=== PATIENT | female | born 1950 ===

== ENCOUNTER 2017-01-11 12:25 | Emergency (ER) | payer MEDICARE, MEDICAID ==
[2017-01-11 13:17] VITALS: RESP 18
--- NOTE | 2017-01-11 13:51 | C.PDOC ---
History Of Present Illness 66 y/o female with hx of HTN, GERD, anxiety, and pancreatic insufficiency, c/o right sided nose bleeds for the last 3 month. Symptom is described as pressure to the nose. Patient notes bright red blood with no mucus during the nose bleeds. Symptoms is random that occurs every 3 weeks, lasting 2 min. Last occurrence last night. Denies fever, chills, headache, chest pain, SOB, symptoms, OR URI symptoms. Time Seen by Provider: 01/11/17 13:21 Chief Complaint (Nursing): ENT Problem History Per: Patient History/Exam Limitations: None Onset/Duration Of Symptoms: Days, Intermittent Episodes, Persistent Current Symptoms Are (Timing): Still Present Severity: Mild Past Medical History Reviewed: Historical Data, Nursing Documentation, Vital Signs Vital Signs: Last Vital Signs Temp 98 F 01/11/17 13:56 Pulse 74 01/11/17 13:56 Resp 18 01/11/17 13:56 BP 126/83 01/11/17 13:56 Pulse Ox 97 01/11/17 14:58 - Medical History PMH: Anxiety, Arthritis, HTN, Hypothyroidism, Rheumatoid Arthritis - [facility] Procedures EXCIS LES TENDON SHEATH (04/07/13) INJECT/INFUSE NEC (11/24/13) Family History: States: Unknown Family Hx - Social History Hx Tobacco Use: No Hx Alcohol Use: No Hx Substance Use: No - Immunization History Hx Tetanus Toxoid Vaccination: No Hx Influenza Vaccination: No Hx Pneumococcal Vaccination: No Review Of Systems Except As Marked, All Systems Reviewed And Found Negative. Constitutional: Negative for: Fever, Chills ENT: Positive for: Nose Discharge (Epistaxis). Negative for: Nose Congestion, Throat Pain Cardiovascular: Negative for: Chest Pain Respiratory: Negative for: Cough, Shortness of Breath Genitourinary: Negative for: Dysuria, Hematuria Neurological: Negative for: Headache Physical Exam - Physical Exam Appears: Non-toxic, No Acute Distress Skin: Warm, Dry Head: Atraumatic, Normacephalic Nose: Normal, No Discharge, No Epistaxis Oral Mucosa: Moist Throat: Normal, No Erythema, No Exudate Cardiovascular: Rhythm Regular, No Murmur Respiratory: Normal Breath Sounds, No Rales, No Rhonchi, No Wheezing Neurological/Psych: Oriented x3 ED Course And Treatment O2 Sat by Pulse Oximetry: 97 (RA) Pulse Ox Interpretation: Normal Medical Decision Making Medical Decision Making: On reassessment, patient is resting comfortably, and is in no acute distress. Patient was instructed to follow up with physician/clinic in 1-2 days for further evaluation. No active bleeding in the ED. Educated on epistaxis. Disposition Counseled Patient/Family Regarding: Diagnosis, Need For Followup - Disposition Referrals: Maximo Kimball MD [Staff Provider] - Disposition: HOME/ ROUTINE Disposition Time: 13:49 Condition: STABLE Additional Instructions: !. use nasal saline 4 times a day. 2. Take warm steamy showers in the morning to loosen dry mucous. 3. Use Vaseline or lip balm to the bottom of your nares. Instructions: Nosebleed (ED) Forms: [facility] (Colombian) - POA Present On Arrival: None - Clinical Impression Clinical Impression: Bleeding nose - Scribe Statement The provider has reviewed the documentation as recorded by the Scribe Radha david All medical record entries made by the Scribe were at my direction and personally dictated by me. I have reviewed the chart and agree that the record accurately reflects my personal performance of the history, physical exam, medical decision making, and the department course for this patient. I have also personally directed, reviewed, and agree with the discharge instructions and disposition.
[2017-01-11 13:57] VITALS: BP 126/83; PULSE 74; TEMP 98
[2017-01-11 14:03] VITALS: O2SAT 97
== END 2017-01-11 13:57 | disposition home or self-care (01) ==
LOC: C.ER 12:25
DX: R04.0 Epistaxis (principal); I10 Essential (primary) hypertension; M06.9 Rheumatoid arthritis, unspecified

== ENCOUNTER 2017-04-09 12:27 | Emergency (ER) | payer MEDICARE, MEDICAID ==
[2017-04-09 13:20] VITALS: O2SAT 100
[2017-04-09] MEDS ORDERED: Sodium Chloride 0.9% 500 ML IV ONE (13:44)
--- NOTE | 2017-04-09 13:51 | C.PDOC ---
History Of Present Illness 66 y/o female with history of HTN presents to ED with complaints of cough, sore throat and abdominal pain for "few days". Patient reports right groin pain that resolved and states she has history of cyst. Patient denies fever, nausea, vomiting or any other complaints at this time. Time Seen by Provider: 04/09/17 13:35 Chief Complaint (Nursing): Syncope History Per: Patient History/Exam Limitations: no limitations Onset/Duration Of Symptoms: Days Current Symptoms Are (Timing): Still Present Past Medical History Reviewed: Historical Data, Nursing Documentation, Vital Signs Vital Signs: Last Vital Signs Temp 98.5 F 04/09/17 16:31 Pulse 74 04/09/17 16:31 Resp 18 04/09/17 16:31 BP 144/78 04/09/17 16:31 Pulse Ox 100 04/09/17 16:31 - Medical History PMH: Anxiety, Arthritis, HTN, Hypothyroidism, Rheumatoid Arthritis Surgical History: No Surg Hx - [facility] Procedures EXCIS LES TENDON SHEATH (04/07/13) INJECT/INFUSE NEC (11/24/13) Family History: States: No Known Family Hx - Social History Hx Tobacco Use: No Hx Alcohol Use: No Hx Substance Use: No - Immunization History Hx Tetanus Toxoid Vaccination: No Hx Influenza Vaccination: No Hx Pneumococcal Vaccination: No Review Of Systems Constitutional: Negative for: Fever, Chills ENT: Positive for: Throat Pain Respiratory: Positive for: Cough Gastrointestinal: Positive for: Abdominal Pain. Negative for: Nausea, Vomiting Genitourinary: Negative for: Dysuria Skin: Negative for: Rash Physical Exam - Physical Exam Appears: Non-toxic, No Acute Distress Skin: Warm, Dry, No Rash Head: Atraumatic, Normacephalic Eye(s): bilateral: Normal Inspection Oral Mucosa: Moist Neck: Normal ROM, Supple Cardiovascular: Rhythm Regular Respiratory: Normal Breath Sounds, No Rales, No Rhonchi, No Wheezing Gastrointestinal/Abdominal: Soft, No Tenderness, No Guarding, No Rebound Back: No CVA Tenderness Extremity: Normal ROM, Capillary Refill (<2 seconds) Neurological/Psych: Oriented x3 ED Course And Treatment - Laboratory Results Result Diagrams: 04/09/17 14:21 04/09/17 14:21 O2 Sat by Pulse Oximetry: 100 (RA) Pulse Ox Interpretation: Normal Medical Decision Making Medical Decision Making: suspect viral syndrome - r/o gastritis, pancreatitsi, pneumonia. Disposition - Disposition Referrals: [facility] [Outside] [facility] [Outside] Disposition: HOME/ ROUTINE Disposition Time: 16:39 Condition: STABLE Additional Instructions: please follow up with your doctor. return to er with worsening symptoms or concerns. Prescriptions: Oseltamivir Phosphate [Tamiflu] 75 mg PO BID #10 capsule Instructions: Abdominal Pain (ED), Viral Syndrome (ED) Forms: [employer] (Hebrew) - Clinical Impression Clinical Impression: Abdominal pain, Influenza-like illness - Scribe Statement The provider has reviewed the documentation as recorded by the Scribe Ezra Dasilva All medical record entries made by the Joshibbharathi were at my direction and personally dictated by me. I have reviewed the chart and agree that the record accurately reflects my personal performance of the history, physical exam, medical decision making, and the department course for this patient. I have also personally directed, reviewed, and agree with the discharge instructions and disposition.
--- NOTE | 2017-04-09 14:05 | RAD ---
HISTORY: cough COMPARISON: Comparison made with chest radiograph 01/30/2016 TECHNIQUE: Chest PA and lateral FINDINGS: LUNGS: Suspect minor bibasilar atelectasis PLEURA: No significant pleural effusion identified. No pneumothorax apparent. CARDIOVASCULAR: Heart size within range of normal. Aorta ectatic and uncoiled. OSSEOUS STRUCTURES: No significant abnormalities. VISUALIZED UPPER ABDOMEN: Normal. OTHER FINDINGS: None. IMPRESSION: Suspect minor bibasilar atelectasis.
[2017-04-09 14:25] LABS: BASO # 0.1 K/uL (0.0-0.2); BASO % 0.8 % (0.0-2.0); EOS # 0.1 K/uL (0.0-0.7); EOS % 1.6 % (0.0-4.0); HEMOGLOBIN 12.1 g/dL (11.0-16.0); LYMPH # 1.8 K/uL (1.0-4.3); LYMPH % 25.7 % (20.0-40.0); MEAN CELL VOLUME 95.1 fL (81.0-99.0); MEAN CORPUSCULAR HEMOGLOBIN 32.5 pg (27.0-31.0); MEAN CORPUSCULAR HGB CONC 34.2 g/dL (33.0-37.0); MEAN PLATELET VOLUME 7.8 fL (7.2-11.7); MONO # 0.7 K/uL (0.0-0.8); MONO % 10.7 % (0.0-10.0); NEUT # 4.2 K/uL (1.8-7.0); NEUT % 61.2 % (50.0-75.0); RBC 3.71 Mil/uL (3.80-5.20); RED CELL DISTRIBUTION WIDTH 12.9 % (11.5-14.5); WHITE BLOOD COUNT 6.8 K/uL (4.8-10.8)
[2017-04-09 14:35] LABS: INR 1.1
[2017-04-09 14:44] LABS: CALCIUM 9.2 mg/dl (8.6-10.4); GFR AFRICAN-AMERICAN > 60; GFR NON-AFRICAN AMERICAN > 60; LIPASE 60 U/L (23-300)
[2017-04-09 14:46] LABS: ALB/GLOB RATIO 1.1 (1.0-2.1); ALBUMIN 3.8 g/dL (3.5-5.0); ALT/SGPT 18 U/L (9-52); AST/SGOT 44 U/L (14-36); BLOOD UREA NITROGEN 12 mg/dL (7-17)
[2017-04-09 15:43] LABS: SQUAMOUS EPITHIAL 2 /hpf (0-5); URINE BILIRUBIN NEGATIVE (NEGATIVE); URINE BLOOD NEGATIVE (NEGATIVE); URINE CLARITY Clear (Clear); URINE COLOR Straw (YELLOW); URINE GLUCOSE (UA) NORMAL (Normal); URINE LEUKOCYTE ESTERASE NEG Leu/uL (Negative); URINE NITRATE NEGATIVE (NEGATIVE); URINE PROTEIN NEGATIVE (NEGATIVE); URINE UROBILINOGEN NORMAL mg/dL (0.2-1.0)
[2017-04-09 16:31] VITALS: BP 144/78; PULSE 74; RESP 18; TEMP 98.5
== END 2017-04-09 17:01 | disposition home or self-care (01) ==
LOC: C.ER 12:27
DX: J11.1 Influenza due to unidentified influenza virus with other respiratory manifestations (principal); R10.9 Unspecified abdominal pain; I10 Essential (primary) hypertension; M06.9 Rheumatoid arthritis, unspecified; E03.9 Hypothyroidism, unspecified
CPT/HCPCS: 71046; 80053; 81001; 83690; 85025; 85610; 85730; 96361; 96374; 96375; 99285; C9113; J2405; J7040

== ENCOUNTER 2017-06-08 12:22 | Emergency (ER) | payer MEDICARE, MEDICAID ==
[2017-06-08 12:38] VITALS: BP 150/84; PULSE 66; RESP 17; TEMP 97.7; O2SAT 98
[2017-06-08] MEDS ORDERED: Tmp-Smz 800 mg-160 mg DS Tab PO STA (12:55)
[2017-06-08] MEDS ORDERED: Tmp-Smz 800 mg-160 mg DS Tab ONE (13:06)
--- NOTE | 2017-06-08 13:06 | C.PDOC ---
History Of Present Illness 66 year old female presents to the ED complaining of left ear pain for 3 days. No fever, chills, or other complaints. Patient denies any foreign body sensation or drainage. Time Seen by Provider: 06/08/17 12:43 Chief Complaint (Nursing): ENT Problem History Per: Patient History/Exam Limitations: None Onset/Duration Of Symptoms: Days (x3) Current Symptoms Are (Timing): Still Present Past Medical History Reviewed: Historical Data, Nursing Documentation, Vital Signs Vital Signs: Last Vital Signs Temp 97.7 F 06/08/17 12:35 Pulse 66 06/08/17 12:35 Resp 17 06/08/17 12:35 BP 150/84 06/08/17 12:35 Pulse Ox 98 06/08/17 13:13 - Medical History PMH: Anxiety, Arthritis, HTN, Hypothyroidism, Rheumatoid Arthritis - [facility] Procedures EXCIS LES TENDON SHEATH (04/07/13) INJECT/INFUSE NEC (11/24/13) Family History: States: Unknown Family Hx - Social History Hx Tobacco Use: No Hx Alcohol Use: No Hx Substance Use: No - Immunization History Hx Tetanus Toxoid Vaccination: No Hx Influenza Vaccination: No Hx Pneumococcal Vaccination: No Review Of Systems Except As Marked, All Systems Reviewed And Found Negative. Constitutional: Negative for: Fever, Chills ENT: Positive for: Ear Pain. Negative for: Nose Congestion, Throat Pain Respiratory: Negative for: Cough Physical Exam - Physical Exam Appears: Non-toxic, No Acute Distress Skin: Normal Color, Warm, Dry Head: Atraumatic, Normacephalic Eye(s): bilateral: Normal Inspection, PERRL, EOMI Ear(s): Left: Other (TM appears minimally opaque), Right: Normal Nose: Normal Oral Mucosa: Moist Neck: Normal ROM, Supple Chest: Symmetrical Cardiovascular: Rhythm Regular Respiratory: Normal Breath Sounds, No Accessory Muscle Use Neurological/Psych: Oriented x3, Normal Speech ED Course And Treatment O2 Sat by Pulse Oximetry: 98 (RA) Pulse Ox Interpretation: Normal Medical Decision Making Medical Decision Making: Impression: Otitis media Time: 12:55 Plan: Patient given initial dose of Bactrim in the ED. Discharged home with prescription for Bactrim. Advised to follow up with primary doctor in 1-2 days Disposition Counseled Patient/Family Regarding: Diagnosis, Need For Followup - Disposition Referrals: [facility] [Outside] [facility] [Outside] Maximo Kimball MD [Staff Provider] - Disposition: HOME/ ROUTINE Disposition Time: 01:12 Condition: STABLE Additional Instructions: return to er with worsening symptoms or concerns. please see your doctor/clinic and specialist. Prescriptions: Sulfamethoxazole/Trimethoprim [Bactrim DS 800 mg-160 mg] 1 tab PO BID #14 tab Instructions: Ear Infections (Otitis Media) Forms: [email or web address] (Cape Verdean) - Clinical Impression Clinical Impression: Otitis media - Scribe Statement The provider has reviewed the documentation as recorded by the Scribe (Mandy Brewer) Provider Attestation: All medical record entries made by the Scribe were at my direction and personally dictated by me. I have reviewed the chart and agree that the record accurately reflects my personal performance of the history, physical exam, medical decision making, and the department course for this patient. I have also personally directed, reviewed, and agree with the discharge instructions and disposition.
== END 2017-06-08 13:35 | disposition home or self-care (01) ==
LOC: C.ER 12:22
DX: H66.92 Otitis media, unspecified, left ear (principal)

== ENCOUNTER 2018-04-10 12:37 | Emergency (ER) | payer MEDICARE, MEDICAID ==
[2018-04-10 13:34] LABS: BASO % 0.5 % (0.0-2.0); EOS # 0.1 K/uL (0.0-0.7); EOS % 1.4 % (0.0-4.0); HEMOGLOBIN 12.9 g/dL (11.0-16.0); LYMPH # 2.4 K/uL (1.0-4.3); MEAN CELL VOLUME 94.9 fL (81.0-99.0); MEAN CORPUSCULAR HEMOGLOBIN 32.4 pg (27.0-31.0); MEAN CORPUSCULAR HGB CONC 34.1 g/dL (33.0-37.0); MONO # 0.4 K/uL (0.0-0.8); MONO % 7.6 % (0.0-10.0); NEUT # 2.7 K/uL (1.8-7.0); NEUT % 48.5 % (50.0-75.0); RBC 3.99 Mil/uL (3.80-5.20); WHITE BLOOD COUNT 5.6 K/uL (4.8-10.8)
--- NOTE | 2018-04-10 13:34 | C.PDOC ---
History Of Present Illness 67 y/o female,w/PMhx of HTN and hypothyroidism, presents to the ER complaining of intermittent left-sided chest pain which has been present for the past 1 month. Patient states that the pain became worse when she woke up and tried to get out of bed today. Patient described the pain as sharp. She notes that the pain is worse with bending forward and deep breathing. Denies having SOB, fever, chills, nausea, vomiting, leg swelling, breast redness, breast swelling, hx of heart disease, diabetes, and PE/ DVT. Time Seen by Provider: 04/10/18 12:58 Chief Complaint (Nursing): Abdominal Pain History Per: Patient History/Exam Limitations: no limitations Onset/Duration Of Symptoms: Days Current Symptoms Are (Timing): Still Present Severity: Moderate Past Medical History Reviewed: Historical Data, Nursing Documentation, Vital Signs Vital Signs: Last Vital Signs Temp 98.7 F 04/10/18 12:42 Pulse 77 04/10/18 12:42 Resp 16 04/10/18 12:42 BP 137/82 04/10/18 12:42 Pulse Ox 98 04/10/18 12:42 - Medical History PMH: Anxiety, Arthritis, HTN, Hypothyroidism, Rheumatoid Arthritis Surgical History: Cholecystectomy - [facility] Procedures EXCIS LES TENDON SHEATH (04/07/13) INJECT/INFUSE NEC (11/24/13) Family History: States: No Known Family Hx - Social History Hx Tobacco Use: No Hx Alcohol Use: No Hx Substance Use: No - Immunization History Hx Tetanus Toxoid Vaccination: No Hx Influenza Vaccination: No Hx Pneumococcal Vaccination: No Review Of Systems Except As Marked, All Systems Reviewed And Found Negative. Constitutional: Negative for: Fever, Chills Cardiovascular: Positive for: Chest Pain Respiratory: Negative for: Shortness of Breath Gastrointestinal: Negative for: Nausea, Vomiting Physical Exam - Physical Exam Appears: Non-toxic, No Acute Distress Skin: Normal Color, Warm, Dry Head: Atraumatic, Normacephalic Eye(s): bilateral: Normal Inspection Nose: Normal Oral Mucosa: Moist Neck: Supple Chest: Symmetrical, Tenderness (reproducible tenderness to left anterior inferior chest wall) Cardiovascular: Rhythm Regular Respiratory: Normal Breath Sounds, No Rales, No Rhonchi, No Wheezing Gastrointestinal/Abdominal: Soft, No Tenderness, No Guarding, No Rebound Neurological/Psych: Oriented x3, Normal Speech ED Course And Treatment - Laboratory Results Result Diagrams: 04/10/18 13:27 04/10/18 13:27 O2 Sat by Pulse Oximetry: 98 (RA) Pulse Ox Interpretation: Normal - Radiology CXR: Interpreted by Me, Viewed By Me CXR Interpretation: Yes: No Acute Disease Medical Decision Making Medical Decision Making: Assessment: Chest Pain Plan: --Labs --CXR --Pepcid IV --Toradol IV contrary to triage patient has no abd. pain. She admits to discomfort 4 days ago in which she took pepto bismo. No pain now. Patient improved and will discharge home to follow up with pmd within 2 days. ekg - sinus susan at 58 bpm with 1st degree av block, nrm axis, no st or twave abn. Disposition Counseled Patient/Family Regarding: Studies Performed, Diagnosis, Need For Followup, Rx Given - Disposition Referrals: Ralph Garcia MD [Medical Doctor] - Disposition: HOME/ ROUTINE Disposition Time: 14:58 Condition: STABLE Additional Instructions: follow up with your doctor within 2 days call to make an appointment take medications as prescribed return to ER if symptoms worsens or progress. Prescriptions: Lidocaine 5% [Lidoderm] 1 ea TD DAILY PRN #10 patch PRN Reason: Pain, Moderate (4-7) Naproxen [Naprosyn] 500 mg PO BID PRN #16 tab PRN Reason: Pain, Moderate (4-7) Instructions: Costochondritis (DC) Forms: [facility] (Hong Konger), General Discharge Instructions - Clinical Impression Clinical Impression: Chest wall pain - Scribe Statement The provider has reviewed the documentation as recorded by the Roc Henderson Provider Attestation: All medical record entries made by the Joshibbharathi were at my direction and personally dictated by me. I have reviewed the chart and agree that the record accurately reflects my personal performance of the history, physical exam, medical decision making, and the department course for this patient. I have also personally directed, reviewed, and agree with the discharge instructions and disposition.
[2018-04-10 13:49] LABS: ALB/GLOB RATIO 1.4 (1.0-2.1); ALBUMIN 4.5 g/dL (3.5-5.0); ALT/SGPT 20 U/L (9-52); AST/SGOT 28 U/L (14-36); BLOOD UREA NITROGEN 14 mg/dL (7-17); CALCIUM 9.4 mg/dl (8.6-10.4); GFR NON-AFRICAN AMERICAN > 60; LIPASE 52 U/L (23-300)
--- NOTE | 2018-04-10 13:50 | RAD ---
Date of service: 04/10/2018 HISTORY: SOB COMPARISON: 04/09/2017 TECHNIQUE: Chest PA and lateral FINDINGS: LUNGS: No active pulmonary disease. PLEURA: No significant pleural effusion identified. No pneumothorax apparent. CARDIOVASCULAR: No aortic atherosclerotic calcification present. Normal cardiac size. No pulmonary vascular congestion. OSSEOUS STRUCTURES: No significant abnormalities. VISUALIZED UPPER ABDOMEN: Normal. OTHER FINDINGS: None. IMPRESSION: No active disease.
[2018-04-10 13:59] LABS: B-TYPE NATRIURETIC PEPTIDE 69.4 pg/mL (0-900)
[2018-04-10 15:56] VITALS: BP 128/80; PULSE 53; RESP 20; TEMP 98; O2SAT 100
--- NOTE | 2018-04-15 23:41 | CARD ---
APPROVED REPORT Date of service: 04/10/2018 EKG Measurement Heart [id number] <Conclusion> Sinus bradycardia with 1st degree AV block Nonspecific ST and T wave abnormality Abnormal ECG
== END 2018-04-10 16:11 | disposition home or self-care (01) ==
LOC: C.ER 12:37
DX: R07.89 Other chest pain (principal)
CPT/HCPCS: 71046; 80053; 82550; 83690; 83880; 84484; 85025; 85378; 93005; 96374; 96375; 99284; J1885

== ENCOUNTER 2018-04-21 18:35 | Emergency (ER) | payer MEDICARE, MEDICAID ==
--- NOTE | 2018-04-21 19:12 | C.PDOC ---
History Of Present Illness Patient seen tonite due to episodes of diarrhea since last night with ipper abd pain. Slight cold symptom with cough. Denies any dysuria or hematuria. Time Seen by Provider: 04/21/18 19:12 Chief Complaint (Nursing): Abdominal Pain History Per: Patient History/Exam Limitations: no limitations Onset/Duration Of Symptoms: Days, Intermittent Episodes Current Symptoms Are (Timing): Still Present Context: Food Severity: Moderate Pain Scale Rating Of: 4 Location Of Pain/Discomfort: Epigastric, LUQ, Periumbilical Radiation Of Pain To:: None Quality Of Discomfort: Sharp, "Pain" Associated Symptoms: Nausea, Vomiting, Diarrhea. denies: Urinary Symptoms Exacerbating Factors: None Alleviating Factors: None Last Bowel Movement: Other (had episode of LBM) Recent travel outside of the [place]: No Abnormal Vaginal Bleeding: No Past Medical History Vital Signs: Last Vital Signs Temp 101.2 F H 04/21/18 18:51 Pulse 109 H 04/21/18 18:51 Resp 18 04/21/18 18:51 BP 137/82 04/21/18 18:51 Pulse Ox 94 L 04/21/18 18:51 - Medical History PMH: Anxiety, Arthritis, HTN, Hypothyroidism, Rheumatoid Arthritis Surgical History: Cholecystectomy - [facility] Procedures EXCIS LES TENDON SHEATH (04/07/13) INJECT/INFUSE NEC (11/24/13) Family History: States: Unknown Family Hx - Social History Hx Tobacco Use: No Hx Alcohol Use: No Hx Substance Use: No - Immunization History Hx Tetanus Toxoid Vaccination: No Hx Influenza Vaccination: No Hx Pneumococcal Vaccination: No Review Of Systems Constitutional: Positive for: Fever. Negative for: Chills, Sweats, Weakness, Malaise Cardiovascular: Negative for: Chest Pain, Palpitations, Orthopnea, Paroxysmal Noc. Dyspnea Respiratory: Positive for: Cough. Negative for: Shortness of Breath, Hemoptysis Gastrointestinal: Positive for: Nausea, Vomiting, Abdominal Pain, Diarrhea Genitourinary: Negative for: Dysuria, Frequency Musculoskeletal: Negative for: Neck Pain, Shoulder Pain, Arm Pain, Back Pain, Hand Pain, Leg Pain Skin: Negative for: Rash Neurological: Negative for: Weakness, Numbness, Incoordination, Change in Speech, Confusion, Seizures Psych: Negative for: Anxiety, Depression, Psychosis, Suicidal ideation, Withdrawal Physical Exam - Physical Exam Appears: Non-toxic Skin: Normal Color Head: Atraumatic Eye(s): bilateral: Normal Inspection, PERRL, EOMI Nose: Normal Oral Mucosa: Moist, No Dry Tongue: Normal Appearing Lips: Normal Appearing Throat: Normal Neck: Normal Chest: Symmetrical, No Deformity, No Tenderness Cardiovascular: Rhythm Regular Respiratory: Normal Breath Sounds Gastrointestinal/Abdominal: Tenderness (epigastric and upper abd and piiumbilical area) ED Course And Treatment - Laboratory Results Result Diagrams: 04/21/18 19:58 04/21/18 20:48 O2 Sat by Pulse Oximetry: 94 Disposition Counseled Patient/Family Regarding: Diagnosis - Disposition Referrals: [facility] [Outside] Disposition: HOME/ ROUTINE Disposition Time: 00:46 Condition: STABLE Prescriptions: Ciprofloxacin [Cipro] 1 tab PO BID #14 tab Metronidazole [Flagyl] 250 mg PO BID #14 tablet Instructions: Inflammatory Bowel Disease (DC) Forms: [facility] (Estonian), Gen Discharge Inst Georgian Print Language: BRITISH - POA Present On Arrival: None - Clinical Impression Clinical Impression: Abdominal pain, Inflammatory bowel disease
[2018-04-21] MEDS ORDERED: Iohexol 240 (50 ml) PO ONE (19:19)
[2018-04-21] MEDS ORDERED: Sodium Chloride 0.9% 1,000 ML IV ONE ×2 (19:20)
[2018-04-21] MEDS ORDERED: Iohexol 240 (50 ml) ONE (19:33)
[2018-04-21] MEDS ORDERED: Sodium Chloride 0.9% 2,000 ML ONE (19:34)
[2018-04-21 20:05] LABS: BASO % 0.2 % (0.0-2.0); EOS % 0.1 % (0.0-4.0); HEMOGLOBIN 14.7 g/dL (11.0-16.0); LYMPH # 0.5 K/uL (1.0-4.3); LYMPH % 7.1 % (20.0-40.0); MEAN CELL VOLUME 95.9 fL (81.0-99.0); MEAN CORPUSCULAR HEMOGLOBIN 32.8 pg (27.0-31.0); MEAN CORPUSCULAR HGB CONC 34.2 g/dL (33.0-37.0); MEAN PLATELET VOLUME 8.3 fL (7.2-11.7); MONO # 0.4 K/uL (0.0-0.8); MONO % 6.1 % (0.0-10.0); NEUT # 5.9 K/uL (1.8-7.0); NEUT % 86.5 % (50.0-75.0); PLATELET COUNT 236 K/uL (130-400); RBC 4.49 Mil/uL (3.80-5.20); RED CELL DISTRIBUTION WIDTH 13.4 % (11.5-14.5); WHITE BLOOD COUNT 6.8 K/uL (4.8-10.8)
[2018-04-21 20:12] LABS: SQUAMOUS EPITHIAL 25 /hpf (0-5); URINE BACTERIA MANY (<OCC); URINE BILIRUBIN NEGATIVE (NEGATIVE); URINE BLOOD NEGATIVE (NEGATIVE); URINE CLARITY Hazy (Clear); URINE COLOR Yellow (YELLOW); URINE GLUCOSE (UA) NORMAL (Normal); URINE LEUKOCYTE ESTERASE 3+ Leu/uL (Negative); URINE PROTEIN 1+ mg/dL (NEGATIVE); URINE UROBILINOGEN NORMAL mg/dL (0.2-1.0)
[2018-04-21 21:04] LABS: ALB/GLOB RATIO 1.3 (1.0-2.1); ALBUMIN 3.7 g/dL (3.5-5.0); ALT/SGPT 21 U/L (9-52); AST/SGOT 21 U/L (14-36); BLOOD UREA NITROGEN 13 mg/dL (7-17); CALCIUM 8.2 mg/dl (8.6-10.4); GFR NON-AFRICAN AMERICAN > 60; LIPASE 34 U/L (23-300)
[2018-04-21 21:08] LABS: BANDS 2 % (0-2); LYMPHOCYTE 8 % (20-40); MONOCYTE 3 % (0-10); NEUTROPHIL 84 % (50-75); PLATELET ESTIMATE NORMAL (NORMAL); REACTIVE LYMPHOCYTES 3 % (0-0); TOTAL CELLS COUNTED 100
[2018-04-21 23:59] VITALS: RESP 19
[2018-04-22 01:31] VITALS: BP 113/68; PULSE 78; TEMP 98.1; O2SAT 100
--- NOTE | 2018-04-22 10:15 | RAD ---
HISTORY: abd pain COMPARISON: Chest x-ray performed 04/10/18 TECHNIQUE: Chest PA and lateral FINDINGS: LUNGS: Mild left basilar atelectasis. Right paratracheal opacity may represent tortuous vasculature exaggerated by patient obliquity. Please note that chest x-ray has limited sensitivity for the detection of pulmonary masses. PLEURA: No significant pleural effusion identified. No definite pneumothorax . CARDIOVASCULAR: Stable cardiomediastinal silhouette with marked ectasia of the thoracic aorta. Atherosclerotic calcifications of the aorta. OSSEOUS STRUCTURES: Degenerative changes. Demineralization. VISUALIZED UPPER ABDOMEN: Unremarkable. OTHER FINDINGS: None. IMPRESSION: Mild left basilar atelectasis. Marked aortic ectasia and atherosclerotic calcifications. Right paratracheal opacity may represent tortuous vasculature exaggerated by patient obliquity.
--- NOTE | 2018-04-22 11:07 | CT ---
PROCEDURE: CT Abdomen and Pelvis with oral and IV contrast. HISTORY: abd pain/tenderness COMPARISON: None available TECHNIQUE: Contiguous axial images of the abdomen and pelvis. Oral and IV contrast was administered. Coronal and Sagittal reformats generated and reviewed. Contrast dose: 100 mL Visipaque 320 IV Radiation dose: Total exam DLP = 604.47 mGy-cm. This CT exam was performed using one or more of the following dose reduction techniques: Automated exposure control, adjustment of the mA and/or kV according to patient size, and/or use of iterative reconstruction technique. FINDINGS: LOWER THORAX: Mild bibasilar atelectasis. No visible pleural effusion or pneumothorax. Small hiatal hernia/distal esophageal wall thickening. LIVER: Unremarkable. GALLBLADDER AND BILE DUCTS: Gallbladder is not identified presumably due to cholecystectomy. Cholecystectomy clips are not identified. PANCREAS: Unremarkable. SPLEEN: Unremarkable. ADRENALS: Unremarkable. KIDNEYS AND URETERS: The kidneys enhance symmetrically. No hydronephrosis or obstructing renal calculus. Probable 1 cm left renal cyst. BLADDER: The urinary bladder appears unremarkable. REPRODUCTIVE: Uterus is absent presumably due to hysterectomy. APPENDIX: The appendix appears within normal limits of caliber. No secondary signs of acute appendicitis. BOWEL: The stomach is nondistended. The bowel loops appear within normal limits of caliber without evidence of intestinal obstruction. Small bowel wall thickening and small air-fluid levels evident in nondistended bowel loops. Diverticulosis without CT evidence of acute diverticulitis. PERITONEUM: No significant free fluid. No definite free air. LYMPH NODES: No bulky lymphadenopathy identified. VASCULATURE: No aortic aneurysm. Atherosclerotic calcifications of the aorta.. BONES: Osseous demineralization. Degenerative changes. OTHER FINDINGS: None. IMPRESSION: Small bowel wall thickening and small air-fluid levels evident within nondistended bowel loops; correlate clinically for enteritis. Cholecystectomy. Hysterectomy. 1 cm probable left renal cyst. Small hiatal hernia/distal esophageal wall thickening. Additional incidental findings as above. Preliminary impression was provided by [employer].
== END 2018-04-22 02:17 | disposition home or self-care (01) ==
LOC: C.ER 18:35
DX: K52.9 Noninfective gastroenteritis and colitis, unspecified (principal); I10 Essential (primary) hypertension; E03.9 Hypothyroidism, unspecified; M06.9 Rheumatoid arthritis, unspecified
CPT/HCPCS: 71046; 74177; 80053; 81001; 83690; 85025; 96374; 99285; J1885; J7030; Q9966

== ENCOUNTER 2018-06-04 12:16 | Emergency (ER) | payer MEDICARE, MEDICAID ==
[2018-06-04] MEDS ORDERED: Alum-Mag Hydrox-Simethicone Susp (30 mL) PO STA (14:28)
--- NOTE | 2018-06-04 14:31 | C.PDOC ---
History Of Present Illness 67 y/o female presents to the ER complaining of cramping abdominal pain and 1 vomiting episode which began last night. Patient states that she took Pepto- Bismol last night. Patient reports that she did not take any medications today. She notes that she is on strict diet of potatoes, roast fish, and bananas. She has occasional constipation. She has an upcoming appointment for tests( unknown). Currently, patient denies having fever,chills, diarrhea, constipation, dysuria, and hematuria. Of note, patient was evaluated for diarrhea in [facility] in April 2018. At the time, she had negative labs and CT-Abd & Pelv. Time Seen by Provider: 06/04/18 14:07 Chief Complaint (Nursing): Abdominal Pain History Per: Patient History/Exam Limitations: no limitations Onset/Duration Of Symptoms: Days Current Symptoms Are (Timing): Still Present Severity: Moderate Past Medical History Reviewed: Historical Data, Nursing Documentation, Vital Signs Vital Signs: Last Vital Signs Temp 98.5 F 06/04/18 12:30 Pulse 72 06/04/18 12:30 Resp 18 06/04/18 12:30 BP 135/84 06/04/18 12:30 Pulse Ox 98 06/04/18 12:30 - Medical History PMH: Anxiety, Arthritis, HTN, Hypothyroidism, Rheumatoid Arthritis Surgical History: Cholecystectomy - [facility] Procedures EXCIS LES TENDON SHEATH (04/07/13) INJECT/INFUSE NEC (11/24/13) Family History: States: No Known Family Hx - Social History Hx Tobacco Use: No Hx Alcohol Use: No Hx Substance Use: No - Immunization History Hx Tetanus Toxoid Vaccination: No Hx Influenza Vaccination: No Hx Pneumococcal Vaccination: No Review Of Systems Except As Marked, All Systems Reviewed And Found Negative. Constitutional: Positive for: Weight loss (6 lb intentional weight loss with diet restrictions). Negative for: Fever, Chills Gastrointestinal: Positive for: Vomiting, Abdominal Pain. Negative for: Diarrhea, Constipation Genitourinary: Negative for: Dysuria, Hematuria Physical Exam - Physical Exam Appears: Other (anxious) Skin: Normal Color, Warm, Dry Head: Atraumatic, Normacephalic Eye(s): bilateral: Normal Inspection Nose: Normal Oral Mucosa: Moist Neck: Supple Chest: Symmetrical Cardiovascular: Rhythm Regular Respiratory: Normal Breath Sounds, No Rales, No Rhonchi, No Wheezing Gastrointestinal/Abdominal: Normal Exam, Soft, No Tenderness, No Guarding, No Rebound Neurological/Psych: Oriented x3, Normal Speech ED Course And Treatment O2 Sat by Pulse Oximetry: 98 (RA) Pulse Ox Interpretation: Normal Medical Decision Making Medical Decision Making: mild indigestion ? viral syndrome vs constipation full w/u with CT abd/pelvis neg 04/30 benign exam, defer repeat w/u with informed consent diet/exercise educated. Disposition Doctor Will See Patient In The: Office Counseled Patient/Family Regarding: Studies Performed, Diagnosis - Disposition Referrals: Stanislav Escobedo MD [Medical Doctor] - Disposition: HOME/ ROUTINE Disposition Time: 14:31 Condition: GOOD Additional Instructions: pepcid 20 mg @ night for gastritis symptoms Maalox 30 cc's (one tablespoon) 5x/day for gastritis relief occasional laxatives (mixed with water to work overnight) if constipation suspected great job on your new diet! now add 7 fresh fruits and vegetables/day a Salad counts as 2 vegetables walk 45 min/day x 5 days a week increases intestinal motility and relieves constipation Instructions: Constipation in Adults, Dyspepsia (DC) Forms: [employer] (Sudanese) - Clinical Impression Clinical Impression: Indigestion - Scribe Statement The provider has reviewed the documentation as recorded by the Roc Henderson Provider Attestation: All medical record entries made by the Joshibe were at my direction and personally dictated by me. I have reviewed the chart and agree that the record accurately reflects my personal performance of the history, physical exam, medical decision making, and the department course for this patient. I have also personally directed, reviewed, and agree with the discharge instructions and disposition.
[2018-06-04] MEDS ORDERED: Aluminum Hydroxide/Magnesium Hydroxide Susp (30 mL) ONE (14:40)
[2018-06-04 14:48] VITALS: BP 157/80; PULSE 67; RESP 16; TEMP 98
[2018-06-04 15:18] VITALS: O2SAT 98
== END 2018-06-04 14:47 | disposition home or self-care (01) ==
LOC: C.ER 12:16
DX: K30 Functional dyspepsia (principal)